=== PATIENT | female | born 1985 | race African-American/Black ===

== ENCOUNTER 2017-09-04 22:10 | Emergency (ER) | payer SELFPAY ==
[~2017-09-04] VITALS: Ht 162.6 cm; Wt 145.0 kg
[~2017-09-04 22:10] MED LIST: AMOXICILLIN500 MG OR; AMOXICILLIN500 MG PO; ANUSOL-HC25 MG RE; CONCEPT OB PO; DENIES CURRENT MEDS; DOXYCYCL HYC100 MG PO; FERRAPLUS 90; FIORICET PO; IBUPROFEN800 MG PO; IRON325 M1 PO; KEFLEX500 MG PO; LEVSIN0.125 M1 PO; NAPROSYN500 MG PO; NEXIUM40 M1 OR; NO; NO HOME MEDS; NORCO1 TA1 PO; ONDANSETRON4 MG PO; PRENATAL DHA200 MG PO; PREVACID30 M2 PO; PROTONIX40 M2 PO; REGLAN5 MG OR; TORADOL PO; TYLENOL500 MG OR; ULTRAM50 MG PO; ZOFRAN4 MG/TAB PO
[2017-09-04] MEDS ORDERED: AMOXICILLIN500 MG PO (22:47)
[2017-09-04] MEDS ORDERED: LORTAB 1010 MG PO (22:47)
[2017-09-05 01:20] VITALS: BP 131/84
== END 2017-09-05 01:20 | disposition home or self-care (01) | DRG 999 ==
LOC: ED 22:10
DX: K04.7 Periapical abscess without sinus (principal); S02.609A Fracture of mandible, unspecified, initial encounter for closed fracture; X58.XXXA Exposure to other specified factors, initial encounter

== ENCOUNTER 2019-02-17 21:27 | Emergency (ER) | payer BC ==
[~2019-02-17] VITALS: Ht 162.6 cm; Wt 145.5 kg
[~2019-02-17 21:27] MED LIST changes: +LORTAB 1010 MG PO
[2019-02-17 22:26] LABS: HEMATOCRIT 29.4 % (37.0-47.0); HEMOGLOBIN 8.1 g/dl (12.0-16.0); IMMATURE GRANULOCYTES 0.2 % (0.0-5.0); MEAN CELL VOLUME 66.2 fL CALC (80.0-100.0); MEAN CORPUSCULAR HGB 18.2 pG CALC (26.0-32.0); MEAN CORPUSCULAR HGB CONC 27.6 g/L CALC (32.0-36.0); NEUT# 4.66 thou/uL (2.00-7.15); RED BLOOD COUNT 4.44 mill/uL (4.20-5.60); RED CELL DISTRI WIDTH 20.1 % (11.5-15.5)
[2019-02-17 22:27] LABS: URINE BILIRUBIN - DIPSTICK NEGATIVE (NEGATIVE); URINE BLOOD DIPSTICK NEGATIVE (NEGATIVE); URINE COLOR YELLOW; URINE GLUCOSE - DIPSTICK NEGATIVE (NEGATIVE); URINE KETONE NEGATIVE (NEGATIVE); URINE LEUK ESTERASE NEGATIVE (NEGATIVE); URINE NITRITE - DIPSTICK NEGATIVE (Negative); URINE PH 5.5 (4.5-8.0); URINE PROTEIN - DIPSTICK NEGATIVE (NEG-TRACE); URINE SPECIFIC GRAVITY >=1.030; URINE UROBILINOGEN - DIPSTICK 0.2 E.U./dL (0.2)
[2019-02-17 22:42] LABS: ALKALINE PHOSPHATASE 69 u/l (38-126); AMYLASE 86 u/l (30-110); ANION GAP 13 (6-22 (CALC)); BILIRUBIN, TOTAL 0.2 mg/dL (0.0-1.4); BUN 13 mg/dL (7-17); BUN/CREATININE RATIO 16 (12-20 (CALC)); CARBON DIOXIDE 25 mmol/l (22-30); CHLORIDE 106 mmol/l (95-108); CREATININE 0.8 mg/dL (0.5-1.0); GFR > 60 ML/MIN (>=60 (CALC)); GFR FOR AFR.AMER. > 60 ML/MIN (>=60 (CALC)); LIPASE 68 u/l (23-300); POTASSIUM 3.6 mmol/l (3.5-5.1); SGOT/AST 16 u/l (14-36); SODIUM 141 mmol/l (137-146)
[2019-02-17 22:43] LABS: ALBUMIN 3.9 g/dL (3.2-5.0)
[2019-02-18] MEDS ORDERED: OMEPRAZOLE20 M2 PO (00:23)
[2019-02-18 00:50] VITALS: BP 110/74
== END 2019-02-18 00:52 | disposition home or self-care (01) | DRG 392 ==
LOC: ED 21:27
PROVIDERS: Family Medicine
DX: K29.70 Gastritis, unspecified, without bleeding (principal)

== ENCOUNTER 2020-01-13 14:12 | Emergency (ER) | payer BC ==
[~2020-01-13] VITALS: Ht 162.6 cm; Wt 136.4 kg
[~2020-01-13 14:12] MED LIST changes: +OMEPRAZOLE20 M2 PO
[2020-01-13] MEDS ORDERED: FIORICET PO (16:56)
[2020-01-13 17:12] VITALS: BP 130/75
== END 2020-01-13 18:00 | disposition home or self-care (01) | DRG 103 ==
LOC: ED 14:12
DX: G43.909 Migraine, unspecified, not intractable, without status migrainosus (principal)

== ENCOUNTER 2020-05-26 12:17 | Emergency (ER) | payer BC ==
[~2020-05-26] VITALS: Ht 162.6 cm; Wt 145.5 kg
[2020-05-26 12:43] LABS: HEMATOCRIT 29.8 % (37.0-47.0); HEMOGLOBIN 7.8 g/dl (12.0-16.0); IMMATURE GRANULOCYTES 0.4 % (0.0-5.0); MEAN CELL VOLUME 65.1 fL CALC (80.0-100.0); MEAN CORPUSCULAR HGB CONC 26.2 g/dL CAL (32.0-36.0); NEUT# 4.31 thou/uL (2.00-7.15); RED BLOOD COUNT 4.58 mill/uL (4.20-5.60); RED CELL DISTRI WIDTH 21.1 % (11.5-15.5)
[2020-05-26 12:52] LABS: ALBUMIN 4.1 g/dL (3.2-5.0); ALKALINE PHOSPHATASE 61 u/l (38-126); ANION GAP 10 (6-22 (CALC)); BILIRUBIN, TOTAL 0.2 mg/dL (0.0-1.4); BUN 11 mg/dL (7-17); BUN/CREATININE RATIO 11 (12-20 (CALC)); CARBON DIOXIDE 26 mmol/l (22-30); CHLORIDE 107 mmol/l (95-108); GFR > 60 ML/MIN (>=60 (CALC)); GFR FOR AFR.AMER. > 60 ML/MIN (>=60 (CALC)); LIPASE 63 u/l (23-300); POTASSIUM 3.8 mmol/l (3.5-5.1); SGOT/AST 17 u/l (14-36); SODIUM 139 mmol/l (137-146); TOTAL PROTEIN 8.5 g/dL (6.3-8.2)
[2020-05-26 17:21] VITALS: BP 138/84
== END 2020-05-26 17:25 | disposition home or self-care (01) | DRG 313 ==
LOC: ED 12:17
DX: R07.9 Chest pain, unspecified (principal); E66.9 Obesity, unspecified
CPT/HCPCS: Q9967